=== PATIENT | female | born 1980 | race Caucasian/White ===

== ENCOUNTER 2018-11-04 18:40 | Emergency (ER) | payer BC, OTHER ==
[2018-11-04] MEDS ORDERED: SODIUM CHLORIDE 0.9% 500 ML 500 ML IV STA (19:45)
[2018-11-04] MEDS ORDERED: NYSTATIN 100,000 UNIT/ML SUSP 500,000 UNIT/5 ML CUP PO STA (19:52)
--- NOTE | 2018-11-04 20:15 | ED ---
General Adult HPI - General Chief complaint: Dizziness Stated complaint: face & arm numbness Time Seen by Provider: 11/04/18 19:16 Source: patient Mode of arrival: ambulatory Limitations: no limitations - History of Present Illness Initial comments: 38-year-old female patient presents to the emergency department today for evaluation of dizziness, right-sided arm and right-sided facial numbness. Patient states symptoms started yesterday and have worsened today. Patient states she is not having numbness and tingling to the left side of her face as well. Patient denies any head injury. States she has been having headaches 1-2 times per week for many months. She denies any difficulty with speech or memory. Denies any blurred or double vision. States she is ambulatory without difficulty. Does not feel any more weak on the right side. Patient states she does have issues with neck pain due to for the muscle spasms. She denies any fever or chills with this. States that she did recently complete chemo cream for skin cancer to her labia. Patient states she did also recently complete a course of steroids for bronchitis. Patient is also reporting a raw and peeling tongue. States she has a white film over it. Patient denies any recent rash, shortness breath, chest pain, abdominal pain, nausea, vomiting, diarrhea, constipation, back pain, hematuria, dysuria, urinary urgency, urinary frequency, or any other complaints. Severity scale (1-10): 0 - Related Data Home Medications Medication Instructions Recorded Confirmed Omeprazole [PriLOSEC] 20 mg PO HS 06/05/17 11/04/18 Previous Rx's Medication Instructions Recorded Amoxic-Pot Clav 875-125Mg 1 tab PO Q12HR #20 tablet 11/04/18 [Augmentin 875-125] Nystatin 100,000 Unit/ml Susp 5 ml PO QID #140 ml 11/04/18 [Mycostatin Oral Susp] Allergies Allergy/AdvReac Type Severity Reaction Status Date / Time APPLE CIDER Allergy Rash/Hives Uncoded 11/04/18 19:24 Review of Systems ROS Statement: Those systems with pertinent positive or pertinent negative responses have been documented in the HPI. ROS Other: All systems not noted in ROS Statement are negative. Past Medical History Past Medical History: Cancer, GERD/Reflux History of Any Multi-Drug Resistant Organisms: None Reported Past Surgical History: Adenoidectomy, Section, Cholecystectomy, Tonsillectomy, Tubal Ligation Past Psychological History: Anxiety Smoking Status: Current every day smoker Past Alcohol Use History: None Reported Past Drug Use History: None Reported General Exam Limitations: no limitations General appearance: alert, in no apparent distress, other (Physical well- developed, well-nourished adult female patient in no acute distress. Vital signs upon presentation are temperature 98.2F, pulse 104, respirations 18, blood pressure 128/80, pulse ox 100% on room air.) Eye exam: Present: normal appearance, PERRL, EOMI. Absent: scleral icterus, conjunctival injection, periorbital swelling ENT exam: Present: normal exam, normal oropharynx, mucous membranes moist, other (Patient has red beefy tongue with white film over the top, patchy. No bleeding.) Respiratory exam: Present: normal lung sounds bilaterally. Absent: respiratory distress, wheezes, rales, rhonchi, stridor Cardiovascular Exam: Present: regular rate, normal rhythm, normal heart sounds. Absent: systolic murmur, diastolic murmur, rubs, gallop, clicks GI/Abdominal exam: Present: soft, normal bowel sounds. Absent: distended, tenderness, guarding, rebound, rigid Neurological exam: Present: alert, oriented X3, CN II-XII intact Expanded Speech: Present: fluid speech Cranial nerves: EOM's Intact: Normal, Tongue Deviation: Normal, Nystagmus: Normal Cerebellar function: Finger to Nose: Normal Upper motor neuron: Pronator Drift: Normal Sensory exam: Upper Extremity Light Touch: Abnormal Right, Lower Extremity Light Touch: Normal Motor strength exam: RUE: 5, LUE: 5, RLE: 5, LLE: 5 Eye Response: (4) open spontaneously Motor Response: (6) obeys commands Verbal Response: (5) oriented Psychiatric exam: Present: normal affect, normal mood Skin exam: Present: warm, dry, intact, normal color. Absent: rash Course Vital Signs 11/04/18 11/04/18 11/04/18 18:47 19:13 20:13 Temperature 98.2 F Pulse Rate 104 H 77 Pulse Rate [ 98 Sitting] Pulse Rate [ 106 H Standing] Pulse Rate [ 90 Supine] Respiratory 18 20 Rate Blood Pressure 128/88 145/80 Blood Pressure 132/90 [Sitting] Blood Pressure 138/101 [Standing] Blood Pressure 139/81 [Supine] O2 Sat by Pulse 100 99 Oximetry 11/04/18 11/04/18 11/04/18 21:03 22:01 22:31 Temperature 98.6 F 98.2 F Pulse Rate 83 78 88 Pulse Rate [ Sitting] Pulse Rate [ Standing] Pulse Rate [ Supine] Respiratory 18 16 18 Rate Blood Pressure 121/78 104/64 116/79 Blood Pressure [Sitting] Blood Pressure [Standing] Blood Pressure [Supine] O2 Sat by Pulse 98 98 Oximetry EKG Findings - EKG Comments: EKG Findings:: EKG obtained at 2019 shows normal sinus rhythm with a ventricular rate of 86, AZ interval 174, QRS duration 78, QT 348, QTC 416. No evidence of ST elevation or depression. Medical Decision Making - Medical Decision Making 38-year-old female patient presents to the emergency department today for evaluation of numbness and tingling to the right upper arm, to her face, and dizziness. Patient is neurologically intact other than some altered sensation in the upper arm on the right. CT of the brain was obtained and showed evidence for maxillary sinusitis. Labs reviewed and were unremarkable. Patient does have chronic neck issues, it is felt her paresthesia could be related to peripheral neuropathy. We will treat for acute sinusitis. She is instructed to follow-up with her primary care physician discuss referral to neurology for further evaluation of the paresthesia. Return parameters discussed in detail. She verbalizes understanding and agrees with this plan. - Lab Data Result diagrams: 11/04/18 20:20 11/04/18 20:20 Lab Results 11/04/18 11/04/18 11/04/18 Range/Units 20:20 20:20 20:20 WBC 11.9 H (3.8-10.6) k/uL RBC 5.10 (3.80-5.40) m/uL Hgb 14.4 (11.4-16.0) gm/dL Hct 44.6 (34.0-46.0) % MCV 87.6 (80.0-100.0) fL MCH 28.3 (25.0-35.0) pg MCHC 32.3 (31.0-37.0) g/dL RDW 13.1 (11.5-15.5) % Plt Count 385 (150-450) k/uL Neutrophils % 62 % Lymphocytes % 29 % Monocytes % 5 % Eosinophils % 2 % Basophils % 0 % Neutrophils # 7.4 (1.3-7.7) k/uL Lymphocytes # 3.5 (1.0-4.8) k/uL Monocytes # 0.6 (0-1.0) k/uL Eosinophils # 0.2 (0-0.7) k/uL Basophils # 0.1 (0-0.2) k/uL PT (9.0-12.0) sec INR (<1.2) APTT (22.0-30.0) sec Sodium 136 L (137-145) mmol/L Potassium 4.3 (3.5-5.1) mmol/L Chloride 105 (98-107) mmol/L Carbon Dioxide 25 (22-30) mmol/L Anion Gap 6 mmol/L BUN 9 (7-17) mg/dL Creatinine 0.76 (0.52-1.04) mg/dL Est GFR (CKD-EPI)AfAm >90 (>60 ml/min/1.73 sqM) Est GFR (CKD-EPI)NonAf >90 (>60 ml/min/1.73 sqM) Glucose 103 H (74-99) mg/dL Calcium 9.2 (8.4-10.2) mg/dL Total Bilirubin 0.4 (0.2-1.3) mg/dL AST 16 (14-36) U/L ALT 35 (9-52) U/L Alkaline Phosphatase 77 (38-126) U/L Troponin I <0.012 (0.000-0.034) ng/mL Total Protein 6.3 (6.3-8.2) g/dL Albumin 3.7 (3.5-5.0) g/dL Urine Color Urine Appearance (Clear) Urine pH (5.0-8.0) Ur Specific Wisner (1.001-1.035) Urine Protein (Negative) Urine Glucose (UA) (Negative) Urine Ketones (Negative) Urine Blood (Negative) Urine Nitrite (Negative) Urine Bilirubin (Negative) Urine Urobilinogen (<2.0) mg/dL Ur Leukocyte Esterase (Negative) Urine HCG, Qual (Not Detectd) 11/04/18 11/04/18 11/04/18 Range/Units 20:20 20:20 21:30 WBC (3.8-10.6) k/uL RBC (3.80-5.40) m/uL Hgb (11.4-16.0) gm/dL Hct (34.0-46.0) % MCV (80.0-100.0) fL MCH (25.0-35.0) pg MCHC (31.0-37.0) g/dL RDW (11.5-15.5) % Plt Count (150-450) k/uL Neutrophils % % Lymphocytes % % Monocytes % % Eosinophils % % Basophils % % Neutrophils # (1.3-7.7) k/uL Lymphocytes # (1.0-4.8) k/uL Monocytes # (0-1.0) k/uL Eosinophils # (0-0.7) k/uL Basophils # (0-0.2) k/uL PT 9.4 (9.0-12.0) sec INR 0.9 (<1.2) APTT 27.3 (22.0-30.0) sec Sodium (137-145) mmol/L Potassium (3.5-5.1) mmol/L Chloride (98-107) mmol/L Carbon Dioxide (22-30) mmol/L Anion Gap mmol/L BUN (7-17) mg/dL Creatinine (0.52-1.04) mg/dL Est GFR (CKD-EPI)AfAm (>60 ml/min/1.73 sqM) Est GFR (CKD-EPI)NonAf (>60 ml/min/1.73 sqM) Glucose (74-99) mg/dL Calcium (8.4-10.2) mg/dL Total Bilirubin (0.2-1.3) mg/dL AST (14-36) U/L ALT (9-52) U/L Alkaline Phosphatase (38-126) U/L Troponin I (0.000-0.034) ng/mL Total Protein (6.3-8.2) g/dL Albumin (3.5-5.0) g/dL Urine Color Light Yellow Urine Appearance Clear (Clear) Urine pH 6.0 (5.0-8.0) Ur Specific Wisner 1.009 (1.001-1.035) Urine Protein Negative (Negative) Urine Glucose (UA) Negative (Negative) Urine Ketones Negative (Negative) Urine Blood Negative (Negative) Urine Nitrite Negative (Negative) Urine Bilirubin Negative (Negative) Urine Urobilinogen <2.0 (<2.0) mg/dL Ur Leukocyte Esterase Negative (Negative) Urine HCG, Qual Not Detected (Not Detectd) - Radiology Data Radiology results: report reviewed, image reviewed CT brain without contrast was obtained. Report was reviewed in its entirety. Impression by Dr. Ortiz shows acute maxillary sinusitis is a change compared to old exam but no acute intracranial abdomen abnormality. Brain is unchanged Disposition Clinical Impression: Maxillary sinusitis, Peripheral neuropathy, Migraine, Oral candidiasis Disposition: HOME SELF-CARE Condition: Good Instructions (If sedation given, give patient instructions): Sinusitis (ED), Migraine Headache (ED), Oral Candidiasis (ED), Peripheral Neuropathy (ED) Additional Instructions: Complete antibiotic prescription in full. Follow-up with her primary care physician for recheck as as possible, discuss referral to neurology for your symptoms. Return to the emergency department immediately for any new, worseni ng, or concerning symptoms. Prescriptions: Amoxic-Pot Clav 875-125Mg [Augmentin 875-125] 1 tab PO Q12HR #20 tablet Nystatin 100,000 Unit/ml Susp [Mycostatin Oral Susp] 5 ml PO QID #140 ml Is patient prescribed a controlled substance at d/c from ED?: No Referrals: None,Stated [Primary Care Provider] - 1-2 days Yessenia Ulloa MD [Medical Doctor] - 1-2 days Time of Disposition: 22:07
[2018-11-04 20:36] LABS: Appearance,Urine Clear (Clear); Bilirubin,Urine Negative (Negative); Blood,Urine Negative (Negative); Color,Urine Light Yellow; Glucose,Urine (UA) Negative (Negative); Ketones,Urine Negative (Negative); Leukocyte Esterase,Urine Negative (Negative); Nitrite,Urine Negative (Negative); Protein,Urine Negative (Negative); Specific Gravity,Urine 1.009 (1.001-1.035); Urobilinogen,Urine <2.0 mg/dL (<2.0)
[2018-11-04 20:37] LABS: Basophils # (A) 0.1 k/uL (0-0.2); Basophils % (A) 0 %; Eosinophils # (A) 0.2 k/uL (0-0.7); Eosinophils % (A) 2 %; HCT 44.6 % (34.0-46.0); HGB 14.4 gm/dL (11.4-16.0); Lymphocytes # (A) 3.5 k/uL (1.0-4.8); Lymphocytes % (A) 29 %; MCH 28.3 pg (25.0-35.0); MCHC 32.3 g/dL (31.0-37.0); MCV 87.6 fL (80.0-100.0); Mean Platelet Volume 6.4; Monocytes # (A) 0.6 k/uL (0-1.0); Monocytes % (A) 5 %; Neutrophils # (A) 7.4 k/uL (1.3-7.7); Neutrophils % (A) 62 %; Platelet Count 385 k/uL (150-450); RDW 13.1 % (11.5-15.5); WBC 11.9 k/uL (3.8-10.6)
[2018-11-04 20:46] LABS: ALT 35 U/L (9-52); AST 16 U/L (14-36); Albumin 3.7 g/dL (3.5-5.0); Alkaline Phosphatase 77 U/L (38-126); Anion Gap 6 mmol/L; Blood Urea Nitrogen 9 mg/dL (7-17); Calcium 9.2 mg/dL (8.4-10.2); Carbon Dioxide 25 mmol/L (22-30); Chloride 105 mmol/L (98-107); Glucose 103 mg/dL (74-99); Potassium 4.3 mmol/L (3.5-5.1); Sodium 136 mmol/L (137-145); Total Bilirubin 0.4 mg/dL (0.2-1.3); Total Protein 6.3 g/dL (6.3-8.2)
--- NOTE | 2018-11-04 20:48 | CT ---
EXAMINATION TYPE: CT brain wo con DATE OF EXAM: 11/04/2018 COMPARISON: 06/05/2017 HISTORY: Facial numbness. CT DLP: 1083.4 mGycm. Automated Exposure Control for Dose Reduction was Utilized. TECHNIQUE: CT scan of the head is performed without contrast. FINDINGS: There is mucosal thickening and fluid levels in the maxillary sinuses. Calvarium is intac t. Ventricles have normal size. There is no mass effect nor midline shift. There is no sign of intracran ial hemorrhage. IMPRESSION: There is maxillary sinusitis that is a change compared to old exam. No acute intracranial abnormality . Brain unchanged.
[2018-11-04 20:50] LABS: INR 0.9 (<1.2); Partial Thromboplastin Time 27.3 sec (22.0-30.0); Prothrombin Time 9.4 sec (9.0-12.0)
[2018-11-04] MEDS ORDERED: AMOXIC-POT CLAV 875MG STARTER 2 EACH TABLET PO STA (22:05)
[2018-11-04 22:33] VITALS: BP 116/79; PULSE 88; RESP 18; TEMP 98.2
== END 2018-11-04 22:32 | disposition home or self-care (01) ==
LOC: EC 18:40
DX: J32.0 Chronic maxillary sinusitis (principal); G62.9 Polyneuropathy, unspecified; G43.909 Migraine, unspecified, not intractable, without status migrainosus; B37.0 Candidal stomatitis; K21.9 Gastro-esophageal reflux disease without esophagitis; F17.200 Nicotine dependence, unspecified, uncomplicated; Z85.828 Personal history of other malignant neoplasm of skin; Z92.21 Personal history of antineoplastic chemotherapy; Z79.899 Other long term (current) drug therapy; Z91.018 Allergy to other foods
CPT/HCPCS: 36415; 70450; 80053; 81003; 81025; 84484; 85025; 85610; 85730; 93005; 96360; 99285

== ENCOUNTER 2018-11-06 05:25 | Emergency (ER) | payer BC ==
[2018-11-06 05:32] VITALS: BP 148/106; TEMP 98.2
[2018-11-06] MEDS ORDERED: FAMOTIDINE 20 MG/2 ML VIAL IV STA (05:39)
[2018-11-06] MEDS ORDERED: diphenhydrAMINE 50 MG CAP PO STA (05:39)
[2018-11-06] MEDS ORDERED: SODIUM CHLORIDE 0.9% 1,000 ML IV STA (05:39)
[2018-11-06] MEDS ORDERED: methylPREDNISolone SOD SUCCI 125 MG/2 ML VIAL IV STA (05:39)
[2018-11-06] MEDS ORDERED: ALBUTEROL NEBULIZED 2.5 MG/3 ML INHALATION STA (05:40)
--- NOTE | 2018-11-06 05:48 | ED ---
Allergic Reaction HPI - General Chief complaint: Allergic Reaction Stated complaint: Poss Allergic Reaction Time Seen by Provider: 11/06/18 05:39 Source: patient Mode of arrival: ambulatory Limitations: no limitations - History of Present Illness Initial Comments: Na is a 38-year-old female presents to the emergency department today for evaluation of an ALLERGIC reaction. Patient was seen and evaluated in the emergency department on Sunday at which time she was diagnosed with migraine and sinusitis she was prescribed Augmentin. Patient no known previous ALLERGY to Augmentin. She reports she took her first dose and became red and flushed her skin is itchy and she began wheezing. - Related Data Home Medications Medication Instructions Recorded Confirmed Omeprazole [PriLOSEC] 20 mg PO HS 06/05/17 11/06/18 Previous Rx's Medication Instructions Recorded Amoxic-Pot Clav 875-125Mg 1 tab PO Q12HR #20 tablet 11/04/18 [Augmentin 875-125] Nystatin 100,000 Unit/ml Susp 5 ml PO QID #140 ml 11/04/18 [Mycostatin Oral Susp] Cetirizine HCl [Zyrtec] 10 mg PO DAILY #30 tab 11/06/18 Fluticasone Propionate [Flonase 1 spray EA NOSTRIL DAILY #1 bottle 11/06/18 Allergy Relief] predniSONE [Deltasone] 40 mg PO DAILY 5 Days #10 tablet 11/06/18 Allergies Allergy/AdvReac Type Severity Reaction Status Date / Time APPLE CIDER Allergy Rash/Hives Uncoded 11/04/18 19:24 Review of Systems ROS Statement: Those systems with pertinent positive or pertinent negative responses have been documented in the HPI. ROS Other: All systems not noted in ROS Statement are negative. Past Medical History Past Medical History: Cancer, GERD/Reflux History of Any Multi-Drug Resistant Organisms: None Reported Past Surgical History: Adenoidectomy, Section, Cholecystectomy, Tonsillectomy, Tubal Ligation Past Psychological History: Anxiety Smoking Status: Current every day smoker Past Alcohol Use History: None Reported Past Drug Use History: None Reported General Exam - General Exam Comments Initial Comments: Physical Exam GENERAL: Appears flushed, tachypneic HENT: Normocephalic, Atraumatic. EYES: PERRL, EOMI PULMONARY: Expiratory wheezing all lung collins CARDIOVASCULAR: Tachycardic, regular warm and well perfused extremities ABDOMEN: Soft and nontender with normal bowel sounds. SKIN: Flushed, hives on chest and arms : Deferred NEUROLOGIC: Patient is alert and oriented x3. Moving all extremities spontaneously MUSCULOSKELETAL: Normal extremities with adequate strength and full range of motion. No lower extremity swelling or edema. No calf tenderness. PSYCHIATRIC: Normal psychiatric evaluation. Limitations: no limitations Course Vital Signs 11/06/18 11/06/18 11/06/18 05:29 05:55 06:01 Temperature 98.2 F Pulse Rate 116 H 100 96 Respiratory 20 14 12 Rate Blood Pressure 148/106 O2 Sat by Pulse 98 Oximetry - Reevaluation(s) Reevaluation #1: Patient was reevaluated, hives have improved, pruritus is improved, wheezing has resolved completely. Patient reports feeling much better. Medical Decision Making - Medical Decision Making The patient was seen and evaluated history was obtained from the patient and review of medical record Patient first dose of Augmentin earlier in the night now appears to be having ALLERGIC reaction Steroids, antihistamines and albuterol were ordered for symptomatic management next line patient is hemodynamically stable with only minimal wheezing at this time I do not feel that epinephrine is indicated Disposition Clinical Impression: Allergic reaction Disposition: HOME SELF-CARE Condition: Stable Instructions (If sedation given, give patient instructions): Anaphylaxis (ED) Prescriptions: predniSONE [Deltasone] 40 mg PO DAILY 5 Days #10 tablet Fluticasone Propionate [Flonase Allergy Relief] 1 spray EA NOSTRIL DAILY #1 bottle Cetirizine HCl [Zyrtec] 10 mg PO DAILY #30 tab Is patient prescribed a controlled substance at d/c from ED?: No Referrals: None,Stated [Primary Care Provider] - 1-2 days
[2018-11-06 06:05] VITALS: PULSE 96; RESP 12
== END 2018-11-06 06:34 | disposition home or self-care (01) ==
LOC: EC 05:25
DX: R06.2 Wheezing (principal); L29.9 Pruritus, unspecified; T36.0X5A Adverse effect of penicillins, initial encounter; K21.9 Gastro-esophageal reflux disease without esophagitis; F17.200 Nicotine dependence, unspecified, uncomplicated; Z85.9 Personal history of malignant neoplasm, unspecified; Z79.899 Other long term (current) drug therapy; Z91.018 Allergy to other foods
CPT/HCPCS: 99284; 96374; 96375; 96361; 94640; J2930

== ENCOUNTER → 2019-05-20 | Outpatient (CLI) | payer BC ==
--- NOTE | 2019-05-20 15:28 | CT ---
EXAMINATION TYPE: CT sinus wo con DATE OF EXAM: 05/20/2019 COMPARISON: None HISTORY: 38-year-old female Chronic sinusitis CT DLP: 583.7 mGycm Automated exposure control for dose reduction was used. TECHNIQUE: Noncontrast axial views of the paranasal sinuses were obtained. Coronal reconstructions pe rformed. FINDINGS: PARANASAL SINUSES: Mild mucosal thickening ethmoid air cells. Trace mucosal thickening floor of the bilateral maxillary sinuses. Frontal and sphenoid sinuses are well pneumatized. There is no air-fluid level. Reactive miladys- osteogenesis is not seen. There is no destruction of the osseous peña of the paranasal sinuses. THE NASAL CAVITY: The osteomeatal complexes are patent. Leftward nasal septal deviation. The imaged brain and orbits are normal in appearance. Mastoid air cells and middle ear cavities are well pneumatized. Reformatted images confirm above findings. IMPRESSION: 1. Scattered mild mucosal thickening in the ethmoid air cells and only trace mucosal thickening along the floors of the maxillary sinuses. 2. Leftward nasal septal deviation.
== END | disposition home or self-care (01) ==
LOC: RADCTMAIN 13:32
PROVIDERS: ATTEND Otolaryngology
DX: J32.9 Chronic sinusitis, unspecified (principal); J34.2 Deviated nasal septum; J34.89 Other specified disorders of nose and nasal sinuses
CPT/HCPCS: 70486

== ENCOUNTER → 2019-12-03 | Outpatient (CLI) | payer BC | END | disposition home or self-care (01) | LOC: LABWHC1 13:12 | PROVIDERS: ATTEND Otolaryngology | DX: J30.89 Other allergic rhinitis (principal) | CPT/HCPCS: 36415 ==

== ENCOUNTER → 2020-01-23 | Outpatient (CLI) | payer BC ==
[2020-01-23 21:05] LABS: Anti-Smith Ab Interp NEGATIVE (NEGATIVE); Cyclic Citrull Pep IgG Unit 0.7 U/mL; Cyclic Citrullinated Pep IgG NEGATIVE (NEGATIVE); DNA Double-Stranded Indetermin (NEGATIVE); JO-1 IgG Antibody <0.2 AI; Scleroderma SC-70 Ab <0.2 AI
[2020-01-23 21:06] LABS: T4, Free (Free Thyroxine) 1.2 ng/dL (0.80-1.80)
[2020-01-23 21:09] LABS: C Reactive Protein 0.4 mg/dL (0.0-0.8)
== END | disposition home or self-care (01) ==
LOC: LABWHC1 12:13
PROVIDERS: ATTEND Nurse Practitioner Family
DX: R53.2 Functional quadriplegia (principal); M25.50 Pain in unspecified joint
CPT/HCPCS: 36415; 83516; 84439; 84443; 84481; 85652; 86038; 86140; 86200; 86225; 86235

== ENCOUNTER 2020-06-04 11:51 | Day surgery (SDC) | payer BC ==
[2020-06-02 11:08] VITALS: BMI 30.1
[~2020-06-04 11:51] MED LIST: DEXAMETHASONE SOD PHOSPHATE 4 MG/ML 1 ML VIAL IV PRN; FAMOTIDINE 20 MG/2 ML VIAL IV PRN; HYDROmorphone 0.5 MG/0.5 ML SYRINGE IVP PRN; LACTATED RINGERS 1,000 ML IV SCH; MIDAZOLAM 2 MG/2 ML VIAL IV PRN; ONDANSETRON 4 MG/2 ML VIAL IVP PRN; SCOPOLAMINE 1.5MG/72HR PATCH TRANSDERM PRN
[2020-06-04] MEDS ORDERED: LIDOCAINE 1% (10MG/ML) FOR IV START INTRADERMA ONE (12:31)
[2020-06-04] MEDS ORDERED: MIDAZOLAM 2 MG/2 ML VIAL ONE (13:51)
[2020-06-04] MEDS ORDERED: PROPOFOL 10 MG/ML 20 ML VIAL IV ONE (13:51)
[2020-06-04] MEDS ORDERED: fentaNYL (PF) 50 MCG/ML 2 ML AMP ONE (13:51)
[2020-06-04] MEDS ORDERED: SUCCINYLCHOLINE CHLORIDE 100 MG/5 ML SYR IV ONE (13:51)
[2020-06-04] MEDS ORDERED: BUPIVACAIN-EPI 0.5%-1:200,000 30 ML VIAL SQ ONE (14:31)
[2020-06-04] MEDS ORDERED: LIDOCAINE 1%-EPI 1:100,000 20 ML VIAL SQ ONE (14:31)
--- NOTE | 2020-06-04 16:02 | P.OP ---
Date of Procedure: 06/04/20 Preoperative Diagnosis: Left parotid mass Postoperative Diagnosis: Same Procedure(s) Performed: Left parotidectomy with the use of a nerve integrity monitor Anesthesia: GETA Surgeon: Carloz Diaz Estimated Blood Loss (ml): 5 Pathology: other (Left parotid mass) Condition: stable Disposition: PACU Indications for Procedure: Patient had a left parotid mass and fine-needle aspiration was unable to obtain a diagnosis therefore surgical removal was recommended. All risks, benefits, and alternative therapies were discussed. Risk of bleeding, infection, need for secondary surgery etc. etc. were discussed consent was obtained and all questions were answered. Risks of bleeding, infection, facial nerve paralysis, Vicky syndrome, scar, etc. etc. were discussed many of the potential risks explained in detail Operative Findings: Left parotid mass was seen the facial nerve of the lower branches were tightly adherent to this mass and the capsule needed to be removed from the mass for preservation of the lower branch of the facial nerve. Description of Procedure: This patient was taken to the operative room and placed in the supine position and a slight reverse Trendelenburg. The nerve integrity monitor was attached and we utilized the nerve integrity monitor throughout the entire case for verification of facial nerve positioning. The LEFT PAROTID was the side of the surgery. The neck was sterilely prepped and draped in usual fashion. With use of a skin marker the incision was marked as a modified Sky incision. The subcutaneous tissue along the incision was injected with lidocaine 1% with epinephrine 1 100,000. Approximately 10 minutes were allowed wait for full vasoconstrictive effects to take place. An incision was made with a 15 blade in the usual fashion. Anterior and posterior skin flaps were developed. The anterior skin flap was sutured forward. We then continued our dissection and the parotid gland from the sternocleidomastoid muscle with care to keep the facial vein intact. The greater auricular nerve was identified and we attempted to maintain as many of the nerve fibers as possible during this dissection. We dissected down following the pointer cartilage to the main branch of the facial nerve and dissected all the branches. We utilized a NIM monitor and probe for this dissection and we continued to utilize this during the dissection for confirmation of the nerve integrity. After dissecting the branch of the facial nerve the tumor was identified and dissected free. The nerve was tightly adhered to the tumor and the capsule of the tumor needed to be violated to free the lower branch of the facial nerve for removal. The nerve was intact and secured. Facial nerve stimulator showed good facial movement. We remove the tumor completely. Hemostasis was excellent. We irrigated with copious amount of irrigation. No bleeding was identified. We inserted gelfoam. We closed the parotid masseteric fascia with 4-0 Vicryl. We closed the deep subcutaneous tissue with 4-0 Vicryl and 4-0 Monocryl. We closed the skin with a 5-0 Prolene in a running nonlocking fashion. Steri-Strips and a compression dressing was placed. Patient was taken to postanesthesia recovery in excellent condition and the patient tolerated this well. Follow-up will be in the office in 1 week for recheck.
[2020-06-04 16:03] VITALS: TEMP 97.4
[2020-06-04 16:17] VITALS: RESP 16
[2020-06-04 17:13] VITALS: BP 124/72; PULSE 103
== END 2020-06-04 17:27 | disposition home or self-care (01) ==
LOC: OR 11:51
PROVIDERS: ATTEND Otolaryngology
DX: D11.0 Benign neoplasm of parotid gland (principal); K21.9 Gastro-esophageal reflux disease without esophagitis; G43.909 Migraine, unspecified, not intractable, without status migrainosus; F17.210 Nicotine dependence, cigarettes, uncomplicated; Z88.1 Allergy status to other antibiotic agents; Z88.2 Allergy status to sulfonamides; Z90.89 Acquired absence of other organs; Z98.890 Other specified postprocedural states; Z79.899 Other long term (current) drug therapy; Z79.1 Long term (current) use of non-steroidal anti-inflammatories (NSAID); Z79.52 Long term (current) use of systemic steroids; Z88.0 Allergy status to penicillin; Z91.018 Allergy to other foods; Z91.09 Other allergy status, other than to drugs and biological substances; Z97.2 Presence of dental prosthetic device (complete) (partial); Z87.42 Personal history of other diseases of the female genital tract; Z90.49 Acquired absence of other specified parts of digestive tract; Z98.51 Tubal ligation status; Z82.61 Family history of arthritis; Z80.1 Family history of malignant neoplasm of trachea, bronchus and lung; Z81.8 Family history of other mental and behavioral disorders; Z83.79 Family history of other diseases of the digestive system; Z83.42 Family history of familial hypercholesterolemia; D36.7 Benign neoplasm of other specified sites
CPT/HCPCS: 42420; 81025; 88307; J2250; J1100; J2405; J3010; J0330; J2704

== ENCOUNTER → 2020-09-20 | Outpatient (CLI) | payer BC ==
[2020-09-20 16:47] LABS: Appearance,CSF Clear; CSF Tube Number 4; CSF Tube Volume 3.5; Nucleated Cells, CSF 0 u/L (0-5); Red Blood Cell,CSF 0 u/L (0-10)
[2020-09-20 16:58] LABS: Total Protein,CSF 32 mg/dL (12-60)
[2020-09-21 12:46] LABS: IgG - CSF 1.6 mg/dL (0.0 - 3.4); IgG/Albumin Index (CSF) 0.57 (0.00 - 0.77); Immunoglobulin G 796 mg/dL (700 - 1600)
== END | disposition home or self-care (01) ==
LOC: LABWHC1 10:01
PROVIDERS: ATTEND Nurse Practitioner Family
DX: R90.82 White matter disease, unspecified (principal)
CPT/HCPCS: 36415; 82040; 82042; 82784; 83916; 84157; 87801; 88108; 89050

== ENCOUNTER → 2021-04-19 | Outpatient (CLI) | payer BC ==
[2021-04-19 13:01] LABS: Appearance,Urine Cloudy (Clear); Bilirubin,Urine Negative (Negative); Blood,Urine Negative (Negative); Color,Urine Yellow; Glucose,Urine (UA) Negative (Negative); Hyaline Casts,Urine 1 /lpf (0-2); Ketones,Urine Negative (Negative); Leukocyte Esterase,Urine Negative (Negative); Mucus,Urine Few /hpf; Nitrite,Urine Negative (Negative); Protein,Urine Trace (Negative); RBC,Urine <1 /hpf (0-5); Specific Gravity,Urine 1.023 (1.001-1.035); Squamous Epithelial Cell,Urine 3 /hpf (0-4); WBC,Urine 1 /hpf (0-5)
[2021-04-19 20:00] LABS: ALT 23 U/L (8-44); AST 20 U/L (13-35); African American GFR (CKD) 115.4 (60.0-200.0); Albumin/Globulin Ratio 1.86 (1.60-3.17); Alkaline Phosphatase 94 U/L (41-126); BUN/Creat Ratio 9.43 Ratio (12.00-20.00); Blood Urea Nitrogen 7.1 mg/dL (9.0-27.0); Calcium 9.1 mg/dL (8.7-10.3); Carbon Dioxide 21.1 mmol/L (21.6-31.8); Chloride 106 mmol/L (96-109); Creatine Kinase 58 U/L (26-186); Globulin 2.2 g/dL (1.6-3.3); Glucose 99 mg/dL (70-110); Magnesium 2.2 mg/dL (1.5-2.4); Non-African American GFR(CKD) 99.5 (60.0-200.0); Potassium 4.6 mmol/L (3.5-5.5); Sodium 138 mmol/L (135-145); Total Protein 6.2 g/dL (6.2-8.2)
[2021-04-19 20:12] LABS: Vitamin B12 <150.0 pg/mL (200.0-944.0)
[2021-04-19 20:25] LABS: HCT 43.7 % (37.2-46.3); MCH 30.4 pg (27.0-32.0); MCV 94.8 fL (80.0-97.0); Mean Platelet Volume 10.3 fL (9.5-12.2); Platelet Count 322 X 10*3/uL (140-440); RBC 4.61 X 10*6/uL (4.10-5.20); RDW 14.4 % (11.5-14.5); WBC 7.72 X 10*3/uL (4.50-10.00)
[2021-04-19 21:34] LABS: Erythrocyte Sedimentation Rate 12 mm/Hr (0-20)
[2021-04-21 08:51] LABS: Vitamin E (Alpha Tocopherol) 961 ug/dL (500-1800)
== END | disposition home or self-care (01) ==
LOC: LABWHC1 10:56
PROVIDERS: ATTEND Psychiatry & Neurology Neurology
DX: M79.7 Fibromyalgia (principal); G89.4 Chronic pain syndrome; Z79.899 Other long term (current) drug therapy
CPT/HCPCS: 36415; 80053; 81001; 82306; 82550; 82607; 82746; 83036; 83519; 83735; 84207; 84425; 84446; 84590; 84591; 84597; 85027; 85652; 86140

== ENCOUNTER → 2023-03-06 | Outpatient (CLI) | payer BC | END | disposition home or self-care (01) | LOC: LABWHC1 15:41 | PROVIDERS: ATTEND Psychiatry & Neurology Neurology | DX: Z01.812 Encounter for preprocedural laboratory examination (principal); E55.9 Vitamin D deficiency, unspecified | CPT/HCPCS: 36415; 82306; 93005 ==

== ENCOUNTER → 2025-01-07 | Outpatient (CLI) | payer BC | END | disposition home or self-care (01) | LOC: LABWHC1 14:16 | PROVIDERS: ATTEND Nurse Practitioner Family | DX: E55.9 Vitamin D deficiency, unspecified (principal) | CPT/HCPCS: 36415; 82306 ==